=== PATIENT | female | born 1960 | race Caucasian/White ===

== ENCOUNTER 2018-01-24 12:21 | Day surgery (SDC) | payer BC ==
[~2018-01-24 12:21] MED LIST: ACETAMINOPHEN 1,000 MG/100 ML BTL IV ONE; CEFAZOLIN 2 Gram 2 GM/50 ML BAG IVPB ONE
[2018-01-24] MEDS ORDERED: SEVOFLURANE 250 ML INH ONE (12:22)
[2018-01-24] MEDS ORDERED: ONDANSETRON HCL IV 4 MG/2 ML VIAL IVP ONE (12:22)
[2018-01-24] MEDS ORDERED: MORPHINE SULFATE 4MG/ML PREFILLED SYRINGE IVP ONE (12:22)
[2018-01-24] MEDS ORDERED: PROPOFOL 10 MG/ML VIAL IV ONE (12:22)
[2018-01-24] MEDS ORDERED: BUPIVACAINE 0.5% W/EPI MPF 30 ML VIAL IVP ONE (12:22)
[2018-01-24] MEDS ORDERED: MIDAZOLAM HCL 2MG/2ML VIAL IV ONE (12:22)
[2018-01-24] MEDS ORDERED: LIDOCAINE 2% MDV (20MG/ML) 20ML VIAL IV ONE (12:22)
[2018-01-24] MEDS ORDERED: FENTANYL PF 100MCG/2ML VIAL IV ONE (12:22)
[2018-01-24] MEDS ORDERED: KETOROLAC 30 MG/ML VIAL IVP ONE (12:22)
--- NOTE | 2018-01-25 20:35 | Operative Note ---
DATE OF SURGERY: 01/24/2018 PREOPERATIVE DIAGNOSIS: INTERNAL DERANGEMENT RIGHT KNEE. POSTOPERATIVE DIAGNOSES: 1. GRADE 3 CHONDROMALACIA PATELLA. 2. GRADE 3 CHONDROMALACIA MEDIAL FEMORAL CONDYLE. 3. DIFFUSE SYNOVITIS IN THE NOTCH. 4. COMPLEX SPLIT TEAR INVOLVING THE POSTERIOR HORN OF THE MEDIAL MENISCUS. 5. LARGE CHONDRAL LESION MEDIAL FEMORAL CONDYLE. 6. FRINGE TEAR INVOLVING THE ANTERIOR LATERAL HORN OF THE LATERAL MENISCUS. PROCEDURE: 1. RIGHT KNEE ARTHROSCOPY WITH PARTIAL MEDIAL AND LATERAL MENISCECTOMIES. 2. RIGHT KNEE ARTHROSCOPY WITH LIMITED SYNOVECTOMY. 3. RIGHT KNEE ARTHROSCOPY WITH CHONDROPLASTY OF THE PATELLA AND MEDIAL FEMORAL CONDYLE. STAFF SURGEON: JERMAINE CALHOUN M.D. ANESTHESIA: GENERAL. PREPARATION: CHLORAPREP. INDIVIDUAL CONSIDERATIONS: NONE. PROCEDURE: The patient was taken to the Operating Room and placed supine on the operating table. She had a successful induction of a general anesthetic. Her right knee was prepped and draped in the usual fashion. The patient had a superior lateral inflow cannula placed. The skin was infiltrated with 0.5% Marcaine with Epinephrine prior. A blood-tinged effusion was drained. The knee was inflated with normal saline. An inferior medial and an inferior lateral portal were made in a similar fashion. The arthroscope was introduced through the inferior lateral portal up into the pouch. The patellofemoral compartment showed a large lesion, primarily in the inferior half of the patella with multiple loose hanging cartilage and this was smoothed with shaver. There was moderate synovitis in the pouch, which was debrided. The notch actually looked pretty good. Both gutters looked pretty good. There was floating debris, which was irrigated out. Medially, she had a large chondral lesion in the medial femoral condyle from 45 to 90, basically peeling off from lateral to medial. This was smoothed off with a shaver. She had a complex split tear involving the posterior horn of the medial meniscus, which was debrided back to a stable rim with basket forceps and a shaver. The tibial plateau looked good. In the notch, the cruciates looked normal. Laterally, she had a fringe tear involving the anterior lateral horn of the lateral meniscus, which was trimmed back with basket forceps and a shaver to a stable rim. The remainder of the lateral compartment structures were normal. After irrigation, the portals were closed with donald and 20 mL of 0.25% plain Marcaine along with 4 mg of Morphine and 40 mg of DepoMedrol were injected into the knee and a sterile Bulkee compressive dressing was applied. The patient tolerated the procedure well. Needle and sponge counts were correct. Estimated blood loss was minimal and she was taken back to Recovery in good condition. There were no complications. JOB NUMBER: [id number] MTDD
== END 2018-01-24 15:15 | disposition home or self-care (01) ==
LOC: SUR 12:21
PROVIDERS: ATTEND Orthopaedic Surgery
DX: S83.231A Complex tear of medial meniscus, current injury, right knee, initial encounter (principal); S83.281A Other tear of lateral meniscus, current injury, right knee, initial encounter; M22.41 Chondromalacia patellae, right knee; M94.261 Chondromalacia, right knee; M24.10 Other articular cartilage disorders, unspecified site; E78.00 Pure hypercholesterolemia, unspecified
CPT/HCPCS: 29880; 29875; 01400; J1885; J2405; J3010; J0690; J2274